=== PATIENT | male | born 1985 | race American Indian/Alaskan Native ===

== ENCOUNTER 2016-12-17 15:31 | Emergency (ER) | payer MEDICARE ==
[2016-12-17 15:57] VITALS: BP 142/99
[2016-12-17] MEDS ORDERED: TYLENOL PO ONE (15:57)
--- NOTE | 2016-12-18 08:02 | ED Elopement Review ---
ED Pt Elopement review - Call Back decision Pt Call Back Decision: No action required
== END 2016-12-17 21:45 | disposition left against medical advice (07) ==
LOC: ED 15:31
DX: I10 Essential (primary) hypertension (principal); Z53.21 Procedure and treatment not carried out due to patient leaving prior to being seen by health care provider

== ENCOUNTER 2017-01-05 11:54 | Emergency (ER) | payer MEDICARE ==
[2017-01-05 12:19] VITALS: BP 140/89
--- NOTE | 2017-01-05 12:30 | Emergency Department Report ---
Chief Complaint: Medical Clearance Stated Complaint: HORMONES CHECK Time Seen by Provider: 01/05/17 12:27 - HPI History of Present Illness: Pt presents for check up to have hormones checked as he and are trying to conceive a child. He has no complaints. - ROS Review of Systems: Negative for fever, chills, ENT symptoms, CP, SOB, abdominal alvarez, n/v, WISE, weakness. - Exam Vital Signs: Vital Signs 01/05/17 12:15 Temperature 98.3 F Pulse Rate 88 Respiratory 18 Rate Blood Pressure 140/89 O2 Sat by Pulse 100 Oximetry Physical Exam: Head NCAT, ENT normal, heart RRR, lungs CTAB, abd soft nontender, no neuro deficits. MSE screening note: Focused history and physical exam performed. Due to findings the following was ordered: ED Medical Decision Making - Medical Decision Making Pt has no complaints. Advised we can not check these things from the emergency department. He verbalized understanding and will follow with a PCP. - Differential Diagnosis well visit ED Disposition for MSE Clinical Impression: Well adult exam Disposition: DISCHARGED TO HOME OR SELFCARE Is pt being admited?: No Condition: Good Referrals: ESPERANZA HYATT MD [Staff Physician] - 3-5 Days Time of Disposition: 12:30
== END 2017-01-05 12:46 | disposition home or self-care (01) ==
LOC: ED 11:54
DX: Z00.8 Encounter for other general examination (principal)
CPT/HCPCS: 99281

== ENCOUNTER 2017-01-07 08:04 | Emergency (ER) | payer MEDICARE ==
[2017-01-07 08:28] VITALS: BP 141/93
[2017-01-07] MEDS ORDERED: TRIPLE ANTIBIOTIC TP ONE ×2 (09:56→09:57)
--- NOTE | 2017-01-07 09:56 | Emergency Department Report ---
ED Recheck HPI - General Chief Complaint: Laceration/Recheck/Suture Stated Complaint: CATHETER FELL OUT OF CHEST Time Seen by Provider: 01/07/17 09:34 Source: patient Mode of arrival: Ambulatory Limitations: No Limitations - History of Present Illness Initial Comments: Patient here reports that he was sent by dialysis clinic for catheter site clean and dressing. Patient says his Vas-Cath to his right chest fell out because dialysis took stitches. He said the catheter fell out. Patient has catheter with him and it is intact with no missing parts. Denies any pain, redness or drainage at catheter site. Denies any fever or chills. Patient dailysis doctor and vascular doctor is at [place]. He says that he schedule to go to the access Center on [place] on Monday to have his Vas-Cath placed. Pain scale of 0 out of 10. Reports that he gets dialysis Wednesdays and Fridays and he will receive full dialysis yesterday. She denies any shortness of breath or chest pain.. MD Complaint: wound re-check Returns Today for: wound recheck Symptoms Since Prior Visit: no new symptoms Associated Symptoms: none Treatments Prior to Arrival: dressings - Related Data Home Medications Medication Instructions Recorded Confirmed Last Taken Hydralazine HCl [hydrALAZINE] 1 tab PO TID 03/11/14 06/17/14 03/10/14 100 MG Ranitidine HCl [Zantac] 150 mg PO TID 03/11/14 06/17/14 03/10/14 150 mg Previous Rx's Medication Instructions Recorded Last Taken Type Carvedilol [Coreg] 25 mg PO BID #60 tablet 03/17/14 Unknown Rx Losartan [Cozaar] 100 mg PO QDAY #30 tablet 03/17/14 Unknown Rx Minoxidil [Loniten] 2.5 mg PO BID #60 tablet 03/17/14 Unknown Rx NIFEdipine XL [Procardia Xl] 90 mg PO Q12HR #60 tablet 03/17/14 Unknown Rx Sevelamer Carbonate [Renvela] 800 mg PO TIDWM #30 tablet 03/17/14 Unknown Rx cloNIDine [Catapres] 0.2 mg PO Q8HR #90 tablet 03/17/14 Unknown Rx hydrALAZINE [Apresoline TAB] 100 mg PO Q8HR #90 tablet 03/17/14 Unknown Rx Allergies Allergy/AdvReac Type Severity Reaction Status Date / Time vancomycin AdvReac Rash Verified 01/07/17 08:24 ED Review of Systems ROS: Stated complaint: CATHETER FELL OUT OF CHEST Other details as noted in HPI Comment: All other systems reviewed and negative Constitutional: denies: chills, fever Respiratory: no symptoms reported Cardiovascular: denies: chest pain, palpitations, edema, syncope Gastrointestinal: denies: nausea, vomiting Musculoskeletal: denies: back pain Skin: other (open wound to anterior chest dialysis catheter fell out) Neurological: denies: headache ED Past Medical Hx - Past Medical History Previous Medical History?: Yes Hx Hypertension: Yes Hx Congestive Heart Failure: No Hx Diabetes: No Hx Renal Disease: Yes (M-W-F) Hx Asthma: No Hx COPD: No Hx HIV: No Additional medical history: vascath R chestwall,hemodialysis - Surgical History Past Surgical History?: Yes Additional Surgical History: brain surgery-aneursym 2013. GRAFT LEFT ARM. VASCATH RIGHT CHEST - Family History Family history: hypertension - Social History Smoking Status: Never Smoker Substance Use Type: None - Medications Home Medications: Home Medications Medication Instructions Recorded Confirmed Last Taken Type Hydralazine HCl [hydrALAZINE] 1 tab PO TID 03/11/14 06/17/14 03/10/14 History 100 MG Ranitidine HCl [Zantac] 150 mg PO TID 03/11/14 06/17/14 03/10/14 History 150 mg Carvedilol [Coreg] 25 mg PO BID #60 tablet 03/17/14 06/17/14 Unknown Rx Losartan [Cozaar] 100 mg PO QDAY #30 tablet 03/17/14 06/17/14 Unknown Rx Minoxidil [Loniten] 2.5 mg PO BID #60 tablet 03/17/14 06/17/14 Unknown Rx NIFEdipine XL [Procardia Xl] 90 mg PO Q12HR #60 tablet 03/17/14 06/17/14 Unknown Rx Sevelamer Carbonate [Renvela] 800 mg PO TIDWM #30 tablet 03/17/14 06/17/14 Unknown Rx cloNIDine [Catapres] 0.2 mg PO Q8HR #90 tablet 03/17/14 06/17/14 Unknown Rx hydrALAZINE [Apresoline TAB] 100 mg PO Q8HR #90 tablet 03/17/14 06/17/14 Unknown Rx ED Physical Exam - General Limitations: No Limitations General appearance: alert, in no apparent distress - Head Head exam: Present: atraumatic, normocephalic, normal inspection - Respiratory Respiratory exam: Present: normal lung sounds bilaterally. Absent: respiratory distress, chest wall tenderness - Cardiovascular Cardiovascular Exam: Present: regular rate, normal rhythm, normal heart sounds - Extremities Exam Extremities exam: Present: normal inspection, full ROM, normal capillary refill. Absent: pedal edema - Neurological Exam Neurological exam: Present: alert, oriented X3, normal gait - Psychiatric Psychiatric exam: Present: normal affect, normal mood - Skin Skin exam: Present: warm, dry, normal color, other (open wound) - Expanded Skin Exam Expanded Type of lesion: Present: other ( dialysis catheter site) Distribution of rash: chest (right anterior chest) Description of rash: Absent: tenderness, erythematous, swelling, discharge, fluctuant, indurated ED Course Vital Signs 01/07/17 08:24 Temperature 98.2 F Pulse Rate 77 Respiratory 19 Rate Blood Pressure 141/93 O2 Sat by Pulse 100 Oximetry - Reevaluation(s) Reevaluation #1: 01/07/17 10:42 Patient stable throughout ED course. ED Recheck MDM - Differential Diagnosis Wound Recheck - Medical Decision Making ED course: Patient would open wound from where dialysis catheter fell out on his right upper chest. There are no signs of infection. Cleansed with iodine, followed by normal saline and sterile dry dressing placed. He said to go to the access Center on Monday for dialysis catheter placement. He is stable and in no distress. Critical care attestation.: If time is entered above; I have spent that time in minutes in the direct care of this critically ill patient, excluding procedure time. ED Disposition Clinical Impression: Encounter for wound care Disposition: DISCHARGED TO HOME OR SELFCARE Is pt being admited?: No Does the pt Need Aspirin: No Condition: Stable Instructions: End-Stage Kidney Disease (ED), Wound Healing and Your Diet (ED) Additional Instructions: Please keep your appointment at the access Center in [place] to Have Catheter Replaced Please keep affected area clean and dry. practice good hand hygiene. Referrals: KERON CHACON MD [Staff Physician] - 3-5 Days
== END 2017-01-07 10:56 | disposition home or self-care (01) ==
LOC: ED 08:04
DX: Z48.00 Encounter for change or removal of nonsurgical wound dressing (principal); I10 Essential (primary) hypertension; Z99.2 Dependence on renal dialysis
CPT/HCPCS: 99283; A6250

== ENCOUNTER 2018-03-08 21:28 | Emergency (ER) | payer MEDICARE | END 2018-03-08 21:45 | disposition left against medical advice (07) | LOC: ED 21:28 | DX: R05 Cough (principal); R50.9 Fever, unspecified; Z53.21 Procedure and treatment not carried out due to patient leaving prior to being seen by health care provider ==